=== PATIENT | male | born 1955 | race Caucasian/White ===

== ENCOUNTER 2023-03-01 06:40 | Emergency (ER) | payer MEDICARE, SELFPAY ==
[2023-03-01 06:58] VITALS: BP 147/103; PULSE 60; RESP 18; TEMP 36.8; O2SAT 99; BMI 25.1
--- NOTE | 2023-03-01 07:18 | ED.SKABFB1 ---
HPI - Skin/Abscess/Foreign Bdy General Chief complaint: Skin/Abscess/Foreign Body Stated complaint: LUMP/BUMPS Time Seen by Provider: 03/01/23 07:04 Source: patient Mode of arrival: walk-in Limitations: no limitations History of Present Illness HPI narrative: 67-year-old male presents for a red raised areas on his right lower abdomen just above the groin. It's been there for a few days and it popped and some pus came out. He doesn't have any on his scrotum. No fever or vomiting. He was concerned it might be an infection. Related Data Previous Rx's Medication Instructions Recorded cephalexin 500 mg capsule 500 mg PO QID 10 days #40 caps 03/01/23 doxycycline hyclate 100 mg capsule 100 mg PO BID 10 days #20 caps 03/01/23 Allergies Allergy/AdvReac Type Severity Reaction Status Date / Time Sulfa (Sulfonamide AdvReac Intermediate Verified 03/01/23 06:58 Antibiotics) Review of Systems ROS Narrative A ten point review of systems is negative except as noted above. PFSH PFSH Social History Smoking status: Never smoker Exam Narrative Exam Narrative: Nurses note and vital signs reviewed and patient is not hypoxic. General: The patient appears well and in no apparent distress. Patient is resting comfortably on cart. he is hard of hearing Skin: Warm, dry, no pallor noted. There is no rash noted. Head: Normocephalic, atraumatic Eye: Normal conjunctiva, no drainage Ears, Nose, Mouth, and Throat: oral mucosa is moist. Nares patent. Cardiovascular: Regular Rate and Rhythm Respiratory: Patient is in no distress, no accessory muscle use, lungs are clear to auscultation, no wheezing, rales or rhonchi Back: non-tender GI: soft and nontender. No inguinal adenopathy. Just above the right inguinal area are three erythematous minimally raised areas one of which has drained. There is no fluctuance or open area and each one is about 3 mm in diameter. No surrounding erythema. no other lesions are present including on the scrotum. Musculoskeletal: The patient has no evidence of calf tenderness, no pitting edema, symmetrical pulses noted bilaterally Neurological: A&O, normal speech Psychiatric: Cooperative Constitutional Vital Signs, click to edit/add: Last Vital Signs Temp 98.2 F 03/01/23 06:58 Pulse 60 10/18/23 06:58 Resp 18 03/01/23 06:58 BP 147/103 H 03/01/23 06:58 Pulse Ox 99 03/01/23 06:58 Course Vital Signs Vital signs: Vital Signs Temperature 98.2 F 03/01/23 06:58 Pulse Rate 60 03/01/23 06:58 Respiratory Rate 18 03/01/23 06:58 Blood Pressure 147/103 H 03/01/23 06:58 Pulse Oximetry 99 03/01/23 06:58 Temperature 98.2 F 03/01/23 06:58 Pulse Rate 60 03/01/23 06:58 Respiratory Rate 18 03/01/23 06:58 Blood Pressure 147/103 H 03/01/23 06:58 Pulse Oximetry 99 03/01/23 06:58 MDM - Skin/Abscess/Foreign Bdy MDM Narrative Medical decision making narrative: My clinical impression is that this is folliculitis. He will be prescribed Keflex and doxycycline and was recommended warm compresses. I've no clinical suspicion of abscess or genital herpes. Discharge Plan Discharge Chief Complaint: Skin/Abscess/Foreign Body Clinical Impression: Folliculitis Patient Disposition: Home, Self-Care Time of Disposition Decision: 07:21 Condition: Good Mode of Transportation: Private Vehicle Prescriptions / Home Meds: New cephalexin 500 mg capsule 500 mg PO QID 10 Days Qty: 40 0RF doxycycline hyclate 100 mg capsule 100 mg PO BID 10 Days Qty: 20 0RF Instructions: Folliculitis (ED) Additional Instructions: warm compresses for ten minutes four times a day Stand Alone Forms: Portal Instructions Referrals: Vijay Michaels [Primary Care Provider] - 1 week
[2023-03-01 07:24] VITALS: BP 142/92; PULSE 78; RESP 18; O2SAT 99
== END 2023-03-01 07:26 | disposition home or self-care (01) ==
PROVIDERS: Emergency Provider Emergency Medicine; PCP Physician Assistant
DX: L73.9 Follicular disorder, unspecified (principal)
CPT/HCPCS: 99283